=== PATIENT | male | born 1985 | race Caucasian/White ===

== ENCOUNTER 2021-03-04 09:26 | Emergency (ER) | payer OTHER ==
[~2021-03-04] VITALS: Ht 180.3 cm; Wt 71.9 kg
--- NOTE | 2021-03-04 10:00 | NUR ---
Pt presents to the ER for palpitations and non-discrept CP. States palpitations started 2 months ago and are still occuring and CP developed 2 weeks ago. Pt c/o "I can feel my heart and I don't like it." Pt states SOB and a feeling of needing to pass out intermittently. Pt states he's a vegetarian and tried taking iron supplements which he thinks helped. Pt is also mildly anxious. Connected to all monitors. Girlfriend at bedside.
--- NOTE | 2021-03-04 10:13 | NUR ---
MD Schaffer at bedside.
[2021-03-04 10:49] LABS: BASOPHILS % (AUTO) 0 % (0-1); EOSINOPHILS % (AUTO) 3 % (1-7); LYMPHOCYTES % (AUTO) 32 % (22-44); MEAN CORPUSCULAR HEMOGLOBIN 29.4 pg (27.5-34.5); MEAN CORPUSCULAR HGB CONC 34.5 g/dL (33.2-36.2); MEAN PLATELET VOLUME 8.1 fL (7.4-10.4); MONOCYTES % (AUTO) 11 % (2-9); NEUTROPHILS % (AUTO) 54 % (42-75); PLATELET COUNT 213 x10^3/uL (130-400); RED BLOOD COUNT 5.33 x10^6/uL (4.38-5.82); RED CELL DISTRIBUTION WIDTH 13.6 % (9.4-14.8)
[2021-03-04 10:54] LABS: MD NO
--- NOTE | 2021-03-04 10:57 | NUR ---
Pt requested food for blood draw r/t fear of needles. Cleared with MD Schaffer, pt provided with food.
[2021-03-04 10:59] LABS: ALANINE AMINOTRANSFERASE 18 U/L (12-78); ALBUMIN 4.1 g/dL (3.4-5.0); ANION GAP 5 mmol/L (5-15); CHLORIDE 108 mmol/L (98-107); CREATININE 0.77 mg/dL (0.7-1.3)
[2021-03-04 11:03] LABS: ALKALINE PHOSPHATASE 46 U/L (45-117); BILIRUBIN,TOTAL 0.6 mg/dL (0.2-1.0); FREE T4 (FREE THYROXINE) 1.01 ng/dL (0.76-1.46); TOTAL PROTEIN 6.9 g/dL (6.4-8.2); TROPONIN I < 0.015 ng/mL (0.000-0.045)
[2021-03-04 11:45] VITALS: BP 112/70
== END 2021-03-04 11:57 | disposition home or self-care (01) ==
LOC: ED 11:53
DX: R00.2 Palpitations (principal); R42 Dizziness and giddiness
CPT/HCPCS: 36415; 71045; 80053; 84439; 84443; 84484; 85025; 93005; 99285